=== PATIENT | male | born 1980 | race Hispanic/Latino ===

== ENCOUNTER 2020-02-15 19:10 | Inpatient (IN) | payer MEDICAID ==
[~2020-02-15] VITALS: Ht 167.6 cm; Wt 90.3 kg
[2020-02-15 19:41] LABS: BASOPHILS % (AUTO) 0.1 % (0.0-5.0); EOSINOPHILS % (AUTO) 0.1 % (0.0-8.0); HEMATOCRIT 43.7 % (42-54); LYMPHOCYTES % (AUTO) 6.5 % (21.0-51.0); MEAN CORPUSCULAR VOLUME 94.4 fL (79-99); MONOCYTES % (AUTO) 4.8 % (3.0-13.0); NEUTROPHILS % (AUTO) 88.1 % (40.0-77.0); PLATELET COUNT (AUTO) 195 K/uL (130-400); RED BLOOD CELL COUNT(AUTO) 4.63 MIL/uL (4.50-6.20); RED CELL DISTRIBUTION WIDTH 11.7 % (11.0-15.5); WHITE BLOOD COUNT (AUTO) 7.7 K/uL (4.8-10.8)
[2020-02-15] MEDS ORDERED: DEXAMETHASONE SOD PHOSPHATE 10MG/ML 1ML VIAL ONE (19:55)
[2020-02-15] MEDS ORDERED: ALBUTEROL INHALER 90MCG/INH IH ONE (19:55)
[2020-02-15] MEDS ORDERED: CEFTRIAXONE SODIUM 1 GM ONE (19:56)
[2020-02-15] MEDS ORDERED: AZITHROMYCIN 250 MG TABLET PO ONE (19:56)
[2020-02-15] MEDS ORDERED: ACETAMINOPHEN-CODEINE 300/30MG TAB ONE (19:57)
[2020-02-15 19:58] LABS: CREATININE 1.2 mg/dL (0.5-1.5); POTASSIUM 3.8 mmol/L (3.5-5.1)
[2020-02-15] MEDS ORDERED: SODIUM CHLORIDE 0.9% 500ML 500 ML IV ONE (19:58)
[2020-02-15 20:03] LABS: ALBUMIN 3.3 g/dL (3.5-5.0); BILIRUBIN,TOTAL 0.6 mg/dL (0.2-1.0); TOTAL PROTEIN, SERUM 8.4 g/dL (6.0-8.3)
[2020-02-15 20:42] LABS: ABG BASE EXCESS -1.8 mmol/L (-2.0-3.0); ABG HCO3 20.9 mmol/L (21.0-28.0); ABG OXYGEN SATURATION 93.8 % (95.0-99.0); ABG PCO2 30 mmHg (35-48)
[2020-02-15 20:43] LABS: RAPID GROUP A STREP NEGATIVE (NEGATIVE)
[2020-02-15] MEDS ORDERED: LACTULOSE 20 GM/30 ML UDCUP PO PRN (21:30)
[2020-02-15] MEDS ORDERED: ONDANSETRON HCL 4 MG/2 ML VIAL IV PRN (21:30)
[2020-02-15] MEDS: AZITHROMYCIN 500MG+NS 250ML 250 ML IV SCH (21:30)
[2020-02-15] MEDS: CEFTRIAXONE SODIUM 1 GM IV SCH (21:30)
[2020-02-15] MEDS ORDERED: ACETAMINOPHEN 325 MG TAB PO PRN ×2 (21:30)
[2020-02-15] MEDS ORDERED: ALBUTEROL INHALER 90MCG/INH IH PRN (21:30)
[2020-02-15] MEDS ORDERED: PHARMACY COMMUNICATION**REMDESIVIR ORDER MISC SCH (21:30)
[2020-02-15] MEDS ORDERED: CLINDAMYCIN 600 MG/D5% WATER 50 ML IV SCH (21:30)
[2020-02-15 21:41] LABS: CRP QUANTITATIVE 127.2 mg/L (0.00-9.0)
[2020-02-16] MEDS ORDERED: IOHEXOL-350 75 ML VIAL IV ONE (00:03)
[2020-02-16 05:00] LABS: HEMATOCRIT 44.4 % (42-54); LYMPHOCYTES % (AUTO) 10.4 % (21.0-51.0); MEAN CORPUSCULAR HEMOGLOBIN 33.2 pg (27.0-33.0); MEAN CORPUSCULAR HGB CONC 34.5 g/dL (32.0-36.0); MEAN CORPUSCULAR VOLUME 96.3 fL (79-99); MONOCYTES % (AUTO) 1.9 % (3.0-13.0); NEUTROPHILS % (AUTO) 87.4 % (40.0-77.0); PLATELET COUNT (AUTO) 195 K/uL (130-400); RED BLOOD CELL COUNT(AUTO) 4.61 MIL/uL (4.50-6.20); RED CELL DISTRIBUTION WIDTH 11.8 % (11.0-15.5); WHITE BLOOD COUNT (AUTO) 5.8 K/uL (4.8-10.8)
[2020-02-16 05:15] LABS: CREATININE 0.6 mg/dL (0.5-1.5)
[2020-02-16] MEDS ORDERED: GUAIFENESIN SUGAR-FREE 100 MG/5 ML UDCUP ONE (05:21)
[2020-02-16 05:28] LABS: POTASSIUM 2.6 mmol/L (3.5-5.1)
[2020-02-16] MEDS ORDERED: GUAIFENESIN SUGAR-FREE 100 MG/5 ML UDCUP PO PRN (05:30)
[2020-02-16] MEDS ORDERED: POTASSIUM CHLORIDE 10MEQ/100ML 100 ML IV ONE ×2 (05:58→07:38)
[2020-02-16] MEDS ORDERED: LIDOCAINE HCL-MPF 1% 2ML VIAL ONE ×2 (06:21→10:23)
[2020-02-16] MEDS: FAMOTIDINE 20MG TAB 20 MG TAB PO SCH ×2 (09:00→19:49)
[2020-02-16] MEDS ORDERED: ENOXAPARIN SODIUM 40 MG/0.4 ML SYRINGE SQ SCH (09:00)
[2020-02-16] MEDS: DEXAMETHASONE 4 MG TAB PO SCH (09:00)
[2020-02-16] MEDS ORDERED: DEXAMETHASONE 4 MG TAB ONE (09:20)
[2020-02-16 09:21] LABS: CREATININE 1.5 mg/dL (0.5-1.5); POTASSIUM 4.6 mmol/L (3.5-5.1)
[2020-02-16] MEDS ORDERED: ENOXAPARIN SODIUM 40 MG/0.4 ML SYRINGE SQ ONE (09:21)
[2020-02-16] MEDS ORDERED: POTASSIUM CHLORIDE 20MEQ/100ML 100 ML IV ONE (10:23)
[2020-02-16] MEDS ORDERED: FOLIC ACID 1 MG TABLET PO SCH (12:15)
[2020-02-16] MEDS ORDERED: THIAMINE HCL 100 MG TABLET PO SCH (12:15)
[2020-02-16] MEDS: FOLIC ACID 1 MG TABLET PO SCH (12:30)
[2020-02-16] MEDS: THIAMINE HCL 100 MG TABLET PO SCH (12:30)
[2020-02-16 16:13] VITALS: BP 104/71
--- NOTE | 2020-02-16 17:29 | NUR ---
INITIAL: Call placed to pt's phone #. Spoke w pt via phone to discuss dcp. Pt mentions that prior to admission he was living w his spouse and in laws. He mentions that he is independent w ambulation and ADLS. He does not own any DME or receive services. Per pt he feels safe and comfortable to [place] at [place]. CM to continue to follow and wait for Md recommendations. Addendum: 02/16/20 at 1732 by ANCELMO NEIL Amended: Links added.
[2020-02-16] MEDS: ENOXAPARIN SODIUM 40 MG/0.4 ML SYRINGE SQ SCH (19:48)
[2020-02-16] MEDS: AZITHROMYCIN 500MG+NS 250ML 250 ML IV SCH (19:49)
[2020-02-16] MEDS: CEFTRIAXONE SODIUM 1 GM IV SCH (19:49)
[2020-02-16 19:51] VITALS: BP 150/85
[2020-02-16 19:52] VITALS: BP 114/68
[2020-02-16 23:57] VITALS: BP 112/70
[2020-02-17 03:41] VITALS: BP 117/76
[2020-02-17 04:43] LABS: BASOPHILS % (AUTO) 0.1 % (0.0-5.0); HEMATOCRIT 40.5 % (42-54); LYMPHOCYTES % (AUTO) 3.9 % (21.0-51.0); MEAN CORPUSCULAR HEMOGLOBIN 32.8 pg (27.0-33.0); MEAN CORPUSCULAR HGB CONC 34.6 g/dL (32.0-36.0); MEAN CORPUSCULAR VOLUME 94.8 fL (79-99); NEUTROPHILS % (AUTO) 91.5 % (40.0-77.0); PLATELET COUNT (AUTO) 218 K/uL (130-400); RED BLOOD CELL COUNT(AUTO) 4.27 MIL/uL (4.50-6.20); RED CELL DISTRIBUTION WIDTH 11.7 % (11.0-15.5); WHITE BLOOD COUNT (AUTO) 16.8 K/uL (4.8-10.8)
[2020-02-17 04:55] LABS: ALBUMIN 2.7 g/dL (3.5-5.0); BILIRUBIN,TOTAL 0.3 mg/dL (0.2-1.0); MAGNESIUM 2.5 mg/dL (1.80-2.40); POTASSIUM 4.5 mmol/L (3.5-5.1); TOTAL PROTEIN, SERUM 7.5 g/dL (6.0-8.3)
[2020-02-17 08:00] VITALS: BP 107/72
[2020-02-17] MEDS: ENOXAPARIN SODIUM 40 MG/0.4 ML SYRINGE SQ SCH ×2 (08:52→22:00)
[2020-02-17] MEDS: THIAMINE HCL 100 MG TABLET PO SCH (08:52)
[2020-02-17] MEDS: FOLIC ACID 1 MG TABLET PO SCH (08:52)
[2020-02-17] MEDS: DEXAMETHASONE 4 MG TAB PO SCH (08:52)
[2020-02-17] MEDS: FAMOTIDINE 20MG TAB 20 MG TAB PO SCH ×2 (08:52→22:00)
[2020-02-17 12:00] VITALS: BP 116/76
[2020-02-17 16:00] VITALS: BP 112/72
[2020-02-17 20:00] VITALS: BP 119/73
[2020-02-17] MEDS: CEFTRIAXONE SODIUM 1 GM IV SCH (22:00)
[2020-02-17] MEDS: AZITHROMYCIN 500MG+NS 250ML 250 ML IV SCH (22:00)
[2020-02-17 23:37] VITALS: BP 112/66
[2020-02-18 03:47] VITALS: BP 122/72
[2020-02-18 04:51] LABS: BASOPHILS % (AUTO) 0.1 % (0.0-5.0); HEMATOCRIT 42.8 % (42-54); LYMPHOCYTES % (AUTO) 7.1 % (21.0-51.0); MEAN CORPUSCULAR HEMOGLOBIN 32.9 pg (27.0-33.0); MEAN CORPUSCULAR HGB CONC 34.1 g/dL (32.0-36.0); MEAN CORPUSCULAR VOLUME 96.4 fL (79-99); MONOCYTES % (AUTO) 5.7 % (3.0-13.0); NEUTROPHILS % (AUTO) 86.7 % (40.0-77.0); PLATELET COUNT (AUTO) 252 K/uL (130-400); RED BLOOD CELL COUNT(AUTO) 4.44 MIL/uL (4.50-6.20); RED CELL DISTRIBUTION WIDTH 11.7 % (11.0-15.5)
[2020-02-18 05:18] LABS: ALBUMIN 2.7 g/dL (3.5-5.0); BILIRUBIN,TOTAL 0.3 mg/dL (0.2-1.0); CREATININE 0.9 mg/dL (0.5-1.5); CRP QUANTITATIVE 50.2 mg/L (0.00-9.0); POTASSIUM 4.2 mmol/L (3.5-5.1); TOTAL PROTEIN, SERUM 7.6 g/dL (6.0-8.3)
[2020-02-18 08:00] VITALS: BP 104/64
[2020-02-18] MEDS: FAMOTIDINE 20MG TAB 20 MG TAB PO SCH (09:00)
[2020-02-18] MEDS: DEXAMETHASONE 4 MG TAB PO SCH (09:00)
[2020-02-18] MEDS: THIAMINE HCL 100 MG TABLET PO SCH (09:00)
[2020-02-18] MEDS: FOLIC ACID 1 MG TABLET PO SCH (09:00)
[2020-02-18] MEDS: ENOXAPARIN SODIUM 40 MG/0.4 ML SYRINGE SQ SCH (09:01)
[2020-02-18] MEDS ORDERED: APIX2.5T PO (09:43)
[2020-02-18] MEDS ORDERED: DEXA6TAB PO (09:43)
[2020-02-18 12:00] VITALS: BP 110/68
== END 2020-02-18 17:32 | disposition home or self-care (01) | DRG 137 ==
LOC: EDH 19:10 → EDHIP 19:11 → 2AH 02-16 14:00
PROVIDERS: ADMIT Family Medicine; ATTEND Family Medicine
DX: U07.1 COVID-19 (principal); J12.89 Other viral pneumonia; E87.1 Hypo-osmolality and hyponatremia; E87.6 Hypokalemia; J96.01 Acute respiratory failure with hypoxia; N17.9 Acute kidney failure, unspecified; D68.59 Other primary thrombophilia
CPT/HCPCS: 36415; 36600; 71045; 71275; 80048; 80053; 80061; 82728; 82803; 83605; 83615; 83735; 84145; 84484; 85025; 85378; 86140; 86900; 86901; 87040; 87071; 87205; 87426; 87804; 87880; 93005; 94760; G0378; J0456; J0696; J1100; J1650; J3480; J3490; J7040; J8540; Q9967; U0003